=== PATIENT | female | born 1960 | race American Indian/Alaskan Native ===

== ENCOUNTER 2016-05-09 08:43 | Outpatient (CLI) | payer BC ==
--- NOTE | 2016-05-09 11:46 | Mammography Report ---
BILATERAL DIGITAL SCREENING MAMMOGRAM WITH CAD: Comparison study is dated May 04, 2015. FINDINGS: Postoperative distortion in the upper inner right breast is similar to the previous study. There is no evidence of mass or suspicious calcifications. The overall parenchymal pattern is stable. IMPRESSION: Stable benign findings. BI-RADS CATEGORY: 2 = Benign ACR BI-RADS MAMMOGRAPHIC CODES: 0 = Needs additional imaging evaluation; 1 = Negative; 2 = Benign; 3 = Probably benign; 4 = Suspicious; 5 = Malignant; 6 = Known biopsy-proven malignancy COMMENT: 1. Dense breast tissue, i.e., adenosis, fibrocystic changes, etc., may obscure an underlying neoplasm. 2. Approximately 10% of cancers are not detected with mammography. 3. A negative mammography report should not delay biopsy if a clinically suspicious mass is present. RECOMMENDATION: Annual screening. COMMENT: Patient follow-up letters are generated in [employer].
== END 2016-05-09 08:44 | disposition home or self-care (01) ==
LOC: MAMMO 08:43
PROVIDERS: ATTEND Obstetrics & Gynecology Gynecology
DX: Z12.31 Encounter for screening mammogram for malignant neoplasm of breast (principal)
CPT/HCPCS: 77067; G0202